=== PATIENT | female | born 1995 | race Caucasian/White ===

== ENCOUNTER 2017-06-05 21:05 | Emergency (ER) | payer SELFPAY ==
[2017-06-05] MEDS ORDERED: NS 1,000 ML IV ONE (22:29)
--- NOTE | 2017-06-05 22:38 | EDPHY ---
H & P Stated Complaint: from urgent care, uti sx x 3 days, concerned could be PID as well Source: Patient Exam Limitations: No limitations - Medical/Surgical History Hx Asthma: No Hx Chronic Respiratory Disease: No Hx Diabetes: No Hx Cardiac Disease: No Hx Renal Disease: No Hx Cirrhosis: No Hx Alcoholism: No Hx HIV/AIDS: No Hx Splenectomy or Spleen Trauma: No Other PMH: adhd, tonsillectomy, rhinoplasty - Social History Smoking Status: Never smoked HPI/ROS: CHIEF COMPLAINT: Abdominal and pelvic pain, vaginal discharge HISTORY OF PRESENT ILLNESS: Patient complains of abdominal pelvic pain. She says that she had urinary complaints 2-3 days ago. These have persisted. The pain is now primarily in the right lower pelvis and abdomen. It is mild to moderate. Constant duration. Worse with palpation and movement. Associated with some vaginal discomfort vaginal discharge. No flank pain. No fever. No nausea or vomiting. She is sexually active with unprotected intercourse with 1 partner over the past 2 months. Partner is asymptomatic. She does report having an IUD placed 3 months ago. This was done without ultrasound guidance. Presented to Urgent Care, and they were concerned for right lower quadrant pain is centered to our facility without any workup. No other associated complaints or modifying factors. REVIEW OF SYSTEMS: Ten systems reviewed and are negative unless otherwise noted in the HPI PAST MEDICAL HISTORY: Denies any medical history. Recent IUD placement, ParaGard SOCIAL HISTORY: Nonsmoker. Lives here in [place] FAMILY HISTORY: Noncontributory EXAMINATION General Appearance: Alert, no distress Head: normocephalic, atraumatic Eyes: Pupils equal and round, no conjunctival pallor or injection ENT, Mouth: Mucous membranes moist Neck: Normal inspection, supple, non-tender Respiratory: Lungs are clear to auscultation. No wheezing rhonchi or crackles Cardiovascular: Regular rate and rhythm. No murmur. Gastrointestinal: Abdomen is soft and nondistended. There is mild tenderness in the right lower quadrant and upper pelvis. No flank pain. No guarding. No distention. No rigidity. 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 External genitalia normal in appearance. There is mild non odorous discharge present. No cervical motion tenderness. No cervical friability. Mild tenderness of the adnexa. Bimanual exam reveals normal palpation of the ovaries without any masses. DIFFERENTIAL DIAGNOSES: Including but not limited to appendicitis, ovarian cyst, ovarian torsion, tubo- ovarian abscess, pelvic inflammatory disease, sexually transmitted infection, cervicitis, urethritis, UTI, pyelonephritis MDM: 10:40 p.m. Abdominal pelvic pain with benign abdominal examination. I have ordered ultrasound to rule out torsion and tubo-ovarian abscess. She is sexually active without protection and complains of vaginal discharge, thus I will perform pelvic examination. Vital signs are stable. She is in no acute distress. 11:25 p.m. Laboratory studies thus far reveal mild leukocytosis. Urinalysis is pending. Liver enzymes are within normal limits. I have performed a pelvic examination which suggest bacterial vaginosis by examination. No evidence of pelvic inflammatory disease. Cervical swabs are pending. Ultrasound is currently being performed. 12:00 a.m. Notified by radiologist Dr. Estevez. Ultrasound of the appendix was unable to visualize the appendix. Ultrasound of the pelvis reveals mild fluid in the cul- de-sac with a likely ruptured left ovarian cyst. No significant finding otherwise. IUD is in place appropriately. 12:05 a.m. Due to the right lower quadrant pain without definite visualization of the appendix on ultrasound, I have ordered CT scan of the abdomen and pelvis. I have also re-evaluated the patient at this time. She is resting comfortably in no acute distress. Vital signs are stable. Abdominal exam reveals mild tenderness in the right lower quadrant but benign examination. 12:49 a.m. Patient continues to rest comfortably. CT scan has not yet been performed. At this time I have discussed the case with Dr. Gandara. He will assume care the patient. Please see his note for final disposition. SUPERVISION: Patient was evaluated in conjunction with the supervising physician. Please see their note for details. (Silvano White) Constitutional: Initial Vital Signs Temperature (C) 99.0 F 06/05/17 21:20 Heart Rate 59 L 06/05/17 21:20 Respiratory Rate 16 06/05/17 21:20 Blood Pressure 116/66 06/05/17 21:20 O2 Sat (%) 98 06/05/17 21:20 O2 Delivery Mode Room Air Allergies/Adverse Reactions: No Known Allergies Allergy (Unverified 06/05/17 21:24) Home Medications: Medication Instructions Recorded Strattera 06/05/17 Cephalexin [Keflex (*)] 500 mg PO TID #30 cap 06/06/17 metroNIDAZOLE [Flagyl 500 mg (*)] 500 mg PO BID #20 tab 06/06/17 Medical Decision Making ED Course/Re-evaluation: 0119AM: The patient was signed over to me at midnight. Patient was pending a CT scan abdomen pelvis with IV contrast. The CT scan shows a left ovarian cyst previously seen on the ultrasound. Free fluid present. Most likely consistent with a ruptured ovarian cyst. Appendix was visualized and appears normal according to Dr. Bolanos. I went met with the patient discussed her plan of care and imaging studies and blood work. She is comfortable going home. She does understand to return emergency room she develops worsening abdominal pain fever vomiting. (Ankush Gandara) - Data Points Laboratory Results: Laboratory Results 06/05/17 22:45 06/05/17 22:45 Medications Given: Discontinued Medications Cephalexin HCl (Keflex) 500 mg PO EDNOW ONE PRN Reason: Protocol Stop: 06/06/17 01:29 Last Admin: 06/06/17 01:34 Dose: 500 mg Sodium Chloride (Ns) 1,000 mls @ 0 mls/hr IV EDNOW ONE; Wide Open PRN Reason: Protocol Stop: 06/05/17 22:30 Last Admin: 06/05/17 22:54 Dose: 1,000 mls Departure - Departure Disposition: Home, Routine, Self-Care Clinical Impression: Abdominal pain, Pelvic pain, Ovarian cyst Condition: Good Instructions: Urinary Tract Infection in Women (ED), Abdominal Pain (ED) Additional Instructions: 1. Medications as prescribed 2. Follow up with primary care physician Referrals: Vianney Taylor MD [Medical Doctor] - As per Instructions NONE *PRIMARY CARE P,. [Primary Care Provider] - As per Instructions Nuvia Osman DO [Doctor of Osteopathy] - As per Instructions Prescriptions: Cephalexin [Keflex (*)] 500 mg PO TID #30 cap metroNIDAZOLE [Flagyl 500 mg (*)] 500 mg PO BID #20 tab
[2017-06-05 22:57] LABS: % IMMATURE GRANULYOCYTES 0.2 % (0.0-1.1); ABSOLUTE IMMATURE GRANULOCYTES 0.03 10^3/uL (0.00-0.10); ADD DIFF? NO; ADD MORPH? NO; ADD SCAN? NO; ATYPICAL LYMPHOCYTE FLAG 10 (0-99); FRAGMENT RBC FLAG 0 (0-99); HEMATOCRIT 40.5 % (38.0-47.0); HEMOGLOBIN 14.2 g/dL (12.6-16.3); LEFT SHIFT FLG 0 (0-99); LIPEMIA HEMOLYSIS FLAG 90 (0-99); MEAN CELL HEMOGLOBIN 31.6 pg (27.9-34.1); MEAN CELL HEMOGLOBIN CONCENTR. 35.1 g/dL (32.4-36.7); MEAN CELL VOLUME 90.2 fL (81.5-99.8); PLATELET CLUMPS FLAG 10 (0-99); PLATELET COUNT 228 10^3/uL (150-400); RED BLOOD CELL COUNT 4.49 10^6/uL (4.18-5.33); RED CELL DISTRIBUTION WIDTH 13.4 % (11.5-15.2)
[2017-06-05 23:03] LABS: COLOR PALE YELLOW; LEUKOCYTE ESTERASE,URINE 2+ (NEGATIVE); NITRITE,URINE NEGATIVE (NEGATIVE)
[2017-06-05 23:11] LABS: ALANINE AMINOTRANSFERASE 32 IU/L (9-52); ALBUMIN 4.5 g/dL (3.5-5.0); ALKALINE PHOSPHATASE 63 IU/L (38-126); ANION GAP 13 mEq/L (8-16); ASPARTATE AMINOTRANSFERASE 18 IU/L (14-46); BILIRUBIN,TOTAL 1.6 mg/dL (0.1-1.4); BILIRUBIN-CONJUGATED 0.2 mg/dL (0.0-0.5); BILIRUBIN-UNCONJUGATED 1.4 mg/dL (0.0-1.1); CALCIUM 9.4 mg/dL (8.5-10.4); CARBON DIOXIDE 23 mEq/l (22-31); CHLORIDE 102 mEq/L (97-110); CREATININE 0.8 mg/dL (0.6-1.0); GLOMERULAR FILTRATION RATE > 60; GLUCOSE 89 mg/dL (70-100); POTASSIUM 3.8 mEq/L (3.5-5.2); SODIUM 138 mEq/L (134-144); TOTAL PROTEIN 7.3 g/dL (6.3-8.2)
[2017-06-05 23:42] LABS: BACTERIA TRACE /hpf (NONE SEEN); WBC,URINE 50-182 /hpf (0-3)
[2017-06-06] MEDS ORDERED: IOPAMIDOL (ISOVUE-300) 100 ML BTL ONE (00:37)
[2017-06-06] MEDS ORDERED: CEPHALEXIN 500 MG CAP PO ONE (01:28)
[2017-06-06 01:39] VITALS: BP 107/64; PULSE 73; RESP 20; TEMP 98.1; O2SAT 97
[2017-06-06 12:14] LABS: CHLAMYDIA AMPLIFICATION GENPRB NEGATIVE (NEGATIVE)
== END 2017-06-06 01:39 | disposition home or self-care (01) ==
DX: N83.202 Unspecified ovarian cyst, left side (principal); E86.9 Volume depletion, unspecified
CPT/HCPCS: Q9967